=== PATIENT | male | born 1950 | race Caucasian/White ===

== ENCOUNTER 2017-07-15 11:41 | Emergency (ER) | payer OTHER ==
[2017-07-15 11:50] VITALS: BP 127/82
--- NOTE | 2017-07-15 12:00 | ER Document Report ---
ED Medical Screen (RME) - General Chief Complaint: Leg Pain Stated Complaint: POSSIBLE BLOOD CLOT IN KNEE Time Seen by Provider: 07/15/17 11:58 Notes: Patient was referred from radiology. Patient had a DVT several years ago he has been on Xarelto for the last 2 years. He noticed that he had some leg swelling recently so he was sent for an ultrasound today. They found to clots apparently this morning. The patient was referred here for hematology consultation. - Related Data Allergies/Adverse Reactions: No Known Allergies Allergy (Unverified 11/21/11 06:57) Past Medical History - Social History Chew tobacco use (# tins/day): No Frequency of alcohol use: Heavy Drug Abuse: None - Past Medical History Cardiac Medical History: Denies: Hx Coronary Artery Disease, Hx Heart Attack, Hx Hypertension Pulmonary Medical History: Reports: Hx Asthma Denies: Hx Bronchitis, Hx COPD, Hx Pneumonia Neurological Medical History: Denies: Hx Cerebrovascular Accident, Hx Seizures Musculoskeltal Medical History: Denies Hx Arthritis Past Surgical History: Reports: Hx Bowel Surgery. Denies: Hx Pacemaker - Immunizations Hx Diphtheria, Pertussis, Tetanus Vaccination: No Physical Exam - Vital signs Vitals: Temp Pulse Resp BP Pulse Ox 97.6 F 75 18 127/82 H 96 07/15/17 11:45 07/15/17 11:45 07/15/17 11:45 07/15/17 11:45 07/15/17 11:45 Course - Vital Signs Vital signs: Temp Pulse Resp BP Pulse Ox 97.6 F 75 18 127/82 H 96 07/15/17 11:45 07/15/17 11:45 07/15/17 11:45 07/15/17 11:45 07/15/17 11:45
[2017-07-15 12:40] LABS: ABSOLUTE EOSINOPHILS # (AUTO) 0.2 10^3/uL (0.0-0.6); ABSOLUTE LYMPHOCYTES (AUTO) 1.7 10^3/uL (0.5-4.7); ABSOLUTE MONOCYTES (AUTO) 0.6 10^3/uL (0.1-1.4); ABSOLUTE NEUT (AUTO) 3.6 10^3/uL (1.7-8.2); BASOPHILS % (AUTO) 0.3 % (0-2); EOSINOPHILS % (AUTO) 2.8 % (0-6); HEMATOCRIT 46.8 % (37.9-51.0); HGB HCT DIFFERENCE 1.2; LYMPHOCYTES % (AUTO) 28.1 % (13-45); MEAN CORPUSCULAR HEMOGLOBIN 31.8 pg (27.0-33.4); MEAN CORPUSCULAR HGB CONC 34.2 g/dL (32.0-36.0); MEAN CORPUSCULAR VOLUME 93 fl (80-97); MONOCYTES % (AUTO) 9.3 % (3-13); RED BLOOD COUNT 5.04 10^6/uL (4.35-5.55); RED CELL DISTRIBUTION WIDTH 13.3 % (11.5-14.0); SEGMENTED NEUTROPHILS % (AUTO) 59.5 % (42-78); WHITE BLOOD COUNT 6.1 10^3/uL (4.0-10.5)
[2017-07-15 13:00] LABS: ANION GAP 11 (5-19); BLOOD UREA NITROGEN 7 mg/dL (7-20); CALCIUM 9.7 mg/dL (8.4-10.2); CARBON DIOXIDE 24 mmol/L (22-30); CHLORIDE 105 mmol/L (98-107); CREATININE RESULT 0.73 mg/dL (0.52-1.25); GLUCOSE 87 mg/dL (75-110); POTASSIUM 4.1 mmol/L (3.6-5.0); SODIUM 140.4 mmol/L (137-145)
--- NOTE | 2017-07-15 14:41 | ER Document Report ---
ED Extremity Problem, Lower - General Mode of Arrival: Ambulatory Information source: Patient <SILVERANN-MARIE - Last Filed: 07/15/17 22:15> <JULIO FRANCO - Last Filed: 07/15/17 22:56> - General Chief Complaint: Leg Pain Stated Complaint: POSSIBLE BLOOD CLOT IN KNEE Time Seen by Provider: 07/15/17 11:58 Notes: Patient is a 66-year-old male who presents to the emergency department today secondary to having an outpatient Doppler study done today at [facility] of his right lower extremity which revealed 2 DVTs according to the patient. Patient states he has a history of DVTs and he developed right lower extremity pain 2 weeks after a trip to [place] so his PCP (Alison) ordered the doppler. Patient states his pain today is the same as his pain in the past when he was diagnosed with his previous DVT. Patient is on 20 mg of Xarelto once a day and has been for a year or more. Patient states he has not missed any medications. Patient denies any shortness of breath or chest pain. ( ANN-MARIE SHEPPARD) - Related Data Allergies/Adverse Reactions: No Known Allergies Allergy (Unverified 11/21/11 06:57) Past Medical History - General Information source: Patient - Social History Smoking Status: Current Every Day Smoker Cigarette use (# per day): Yes Chew tobacco use (# tins/day): No Frequency of alcohol use: Heavy Drug Abuse: None Lives with: Family Family History: Reviewed & Not Pertinent - Past Medical History Cardiac Medical History: Reports: Hx DVT Pulmonary Medical History: Reports: Hx Asthma Past Surgical History: Reports: Hx Bowel Surgery - Immunizations Hx Diphtheria, Pertussis, Tetanus Vaccination: No <ANN-MARIE SHEPPARD - Last Filed: 07/15/17 22:15> Review of Systems - Review of Systems Constitutional: No symptoms reported EENT: No symptoms reported Cardiovascular: denies: Chest pain Respiratory: denies: Short of breath Gastrointestinal: No symptoms reported Genitourinary: No symptoms reported Male Genitourinary: No symptoms reported Musculoskeletal: See HPI, Other - right calf pain, pain behind right knee Skin: No symptoms reported Hematologic/Lymphatic: No symptoms reported Neurological/Psychological: No symptoms reported -: Yes All other systems reviewed and negative <ANN-MARIE SHEPPARD - Last Filed: 07/15/17 22:15> Physical Exam <ANN-MARIE SHEPPARD - Last Filed: 07/15/17 22:15> <JULIO FRANCO - Last Filed: 07/15/17 22:56> - Vital signs Vitals: Temp Pulse Resp BP Pulse Ox 97.6 F 75 18 127/82 H 96 07/15/17 11:45 07/15/17 11:45 07/15/17 11:45 07/15/17 11:45 07/15/17 11:45 - Notes Notes: Physical Exam: General: Alert, appears well. HEENT: Normocephalic. Atraumatic. PERRL. Extraocular movements intact. Oropharynx clear. Neck: Supple. Non-tender. Respiratory: No respiratory distress. Clear and equal breath sounds bilaterally. Cardiovascular: Regular rate and rhythm. Abdominal: Normal Inspection. Non-tender. No distension. Normal Bowel Sounds. Back: Non-tender. No deformity or step off. Extremities: Moves all four extremities. Upper extremities: Normal inspection. Normal ROM. Lower extremities: Right lower extremity tenderness over posterior calf and medial thigh. Neurological: Normal cognition. AAOx4. Normal speech. Psychological: Normal affect. Normal Mood. Skin: Warm. Dry. Normal color. (ANN-MARIE SHEPPARD) Course - Laboratory Result Diagrams: 07/15/17 12:30 07/15/17 12:30 <ANN-MARIE SHEPPARD - Last Filed: 07/15/17 22:15> - Laboratory Result Diagrams: 07/15/17 12:30 07/15/17 12:30 <JULIO FRANCO - Last Filed: 07/15/17 22:56> - Re-evaluation Re-evalutation: 07/15/17 17:05 Patient was discussed with Dr. Ngo from hematology oncology. Patient with a new DVT despite being on Xarelto. Patient is to start Arixtra and follow-up in the office. Hypercoagulability blood work has been ordered and will be followed up on by hematology. This is been explained to the patient who agrees with this plan. CTA negative. Patient has a history of COPD. Patient is to follow-up with his primary care doctor for a referral to hematology. Patient is to return if he has any further concerns. Understands and agrees with plan. Stable for discharge. (JULIO FRANCO) - Vital Signs Vital signs: Temp Pulse Resp BP Pulse Ox 97.6 F 75 18 127/82 H 96 07/15/17 11:45 07/15/17 11:45 07/15/17 11:45 07/15/17 11:45 07/15/17 11:45 Discharge <ANN-MARIE SHEPPARD - Last Filed: 07/15/17 22:15> <JULIO FRANCO - Last Filed: 07/15/17 22:56> - Discharge Clinical Impression: DVT (deep venous thrombosis) Qualifiers: DVT location: lower extremity Affected thrombotic vein of extremity: popliteal Chronicity: acute Laterality: right Qualified Code(s): I82.431 - Acute embolism and thrombosis of right popliteal vein Condition: Stable Disposition: HOME, SELF-CARE Instructions: DVT Outpatient Treatment ([facility]) Additional Instructions: Your outpatient Doppler is showing a new DVT despite being on Xarelto. Please stop taking Xarelto. Please start using Arixtra daily. Please have your primary care doctor put in a referral for hematology to see you. They will follow-up on your clotting blood work. Your CAT scan did not show any sign of blood clot in your lungs. Prescriptions: Fondaparinux Sodium [Arixtra Inj 7.5 mg/0.6 ml Disp. Syrin] 7.5 mg SUBCUT DAILY #30 disp.[email or web address] Referrals: ANNIKA ROSARIO DO [Primary Care Provider] - Follow up in 3-5 days JAKY NGO MD [ACTIVE STAFF] - Follow up in 3-5 days Scribe Attestation: 07/15/17 22:56 I personally performed the services described in the documentation, reviewed and edited the documentation which was dictated to the scribe in my presence, and it accurately records my words and actions. (JULIO FRANCO) Scribe Documentation - Scribe Written by Miguel Angel:: Miguel Angel Sweet, 07/15/2017 1550 acting as scribe for :: Bryce <ANN-MARIE SHEPPARD - Last Filed: 07/15/17 22:15>
--- NOTE | 2017-07-15 16:34 | RADIOLOGY REPORT (SQ) ---
EXAM DESCRIPTION: CTA CHEST COMPLETED DATE/TIME: 07/15/2017 4:19 pm REASON FOR STUDY: evaluate for PE, hx dvt COMPARISON: None. TECHNIQUE: CT scan of the chest performed using helical scanning technique with dynamic intravenous contrast injection. Images reviewed with lung, soft tissue and bone windows. Reconstructed coronal and sagittal MPR images reviewed. Additional 3 dimensional post-processing performed to develop Maximal Intensity Projection images (DC P). All images stored on PACS. All CT scanners at this facility use dose modulation, iterative reconstruction, and/or weight based d osing when appropriate to reduce radiation dose to as low as reasonably achievable (ALARA). [facility]: Dose Right [facility]: CareDose [facility]: Dose Right [facility]: Teradose 4D [facility]: [employer] CONTRAST TYPE AND DOSE: contrast/concentration: Isovue 370.00 mg/ml; Total Contrast Delivered: 64.0 ml; Total Saline Delivered: 70.0 ml Contrast bolus optimized for the pulmonary arteries. Not diagnostic for the aorta. RENAL FUNCTION: Creatinine 0.7 BUN 7 RADIATION DOSE: Up-to-date CT equipment and radiation dose reduction techniques were employed. CTDIv ol: 13.2 - 14.3 mGy. DLP: 587 mGy-cm. . LIMITATIONS: None. FINDINGS: LUNGS AND PLEURA: Mild centrilobular emphysematous changes are present. There is a 5 mm c alcified granuloma in the left upper lobe. AORTA AND GREAT VESSELS: No aneurysm. Contrast bolus not optimized for the aorta. HEART: No pericardial effusion. PULMONARY ARTERIES: No emboli visualized in the main pulmonary arteries or the segmental branches. HILAR AND MEDIASTINAL STRUCTURES: No identified masses or abnormal nodes. HARDWARE: None in the chest. UPPER ABDOMEN: No significant findings. Limited exam. THYROID AND OTHER SOFT TISSUES: No masses. No adenopathy. BONES: No acute or significant finding. 3D MIPS: Confirm above findings. OTHER: No other significant finding. IMPRESSION: There is no evidence of pulmonary emboli. There is mild pulmonary emphysema. COMMENT: Quality ID # [id number]: Final reports with documentation of one or more dose reduction techniques (e.g., Automated exposure control, adjustment of the mA and/or kV according to patient size, use of iterative reconstruction technique) TECHNICAL DOCUMENTATION: JOB ID: [id number]- All Rights Reserved
[2017-07-15 16:36] LABS: PROTHROMBIN TIME 14.1 SEC (11.4-15.4)
[2017-07-15] MEDS ORDERED: FONDAPARINUX SODIUM INJ 7.5 MG/0.6 ML DISP.SYRIN SUBCUT ONE (16:46)
[2017-07-17 12:04] LABS: FACTOR II ACTIVITY 133 % (50-154)
[2017-07-18 07:27] LABS: BETA-2 GLYCOPROTEIN I IGA AB <9 (0-25)
[2017-07-18 09:40] LABS: DRVVT MIX 49.4 sec (0.0-47.0); PTT-LA 30.8 sec (0.0-51.9); THROMBIN TIME 18.8 sec (0.0-23.0)
[2017-07-18 10:26] LABS: LUPUS PANEL INTERPRETATION Comment: (.)
== END 2017-07-15 17:39 | disposition home or self-care (01) ==
LOC: ER 11:41
DX: I82.431 Acute embolism and thrombosis of right popliteal vein (principal); Z79.01 Long term (current) use of anticoagulants; J44.9 Chronic obstructive pulmonary disease, unspecified; F17.210 Nicotine dependence, cigarettes, uncomplicated
CPT/HCPCS: 99284; 96372; 81240; 86146; 86147 ×3; 36415; 85025; 85610; 85730; 80048; 85210; 86225; 83520; 86235 ×4; 81241; 71275; J1652